=== PATIENT | male | born 1975 | race Caucasian/White ===

== ENCOUNTER 2022-11-08 14:22 | Outpatient (CLI) | payer BC, MEDICAID, SELFPAY ==
--- NOTE | 2022-11-08 | US_ITS ---
WS: [id number] INDICATION: Left groin lump TECHNIQUE: Ultrasound soft tissue area of concern left groin FINDINGS: Ultrasound left groin area of concern. In the area of concern there are 2 enlarged left ing uinal lymph nodes with increased vascularity measuring 2.5 x 2.0 x 1.2 cm and 2.1 x 1.7 x 1.3 cm. Per sistent fatty hilum with cortical thickening. Findings are nonspecific but may be due to lymphadeniti s. Recommend correlation for infection. Neoplasm not excluded. This could be further evaluated with u ltrasound-guided biopsy if indicated. No drainable abscess or fluid collection. IMPRESSION: Enlarged lymph nodes left groin in the area of concern with increased vascularity. These are nonspeci fic but may be due to lymphadenitis. Recommend correlation for infection. However, malignancy not exc luded. This can be further evaluated with ultrasound-guided biopsy.
== END 2022-11-08 14:23 | disposition home or self-care (01) ==
PROVIDERS: Visit Provider Emergency Medicine
DX: R19.09 Other intra-abdominal and pelvic swelling, mass and lump (principal); R59.0 Localized enlarged lymph nodes; R19.02 Left upper quadrant abdominal swelling, mass and lump
CPT/HCPCS: 76857; 76882